=== PATIENT | female | born 1930 | race Caucasian/White ===

== ENCOUNTER 2020-10-30 17:15 | Inpatient (IN) | payer MEDICARE, OTHER ==
[2020-10-30 19:28] LABS: BASO % 0.5 % (0-2.0); EOS % 2.9 % (0-4.5); HEMATOCRIT 37.9 % (32.4-45.2); LYMPH % 17.9 % (8-40); MCH 30.7 pg (25.7-33.7); MCHC 34.2 g/dl (32.0-36.0); MEAN CELL VOLUME 89.8 fl (80-96); MEAN PLT VOLUME 8.5 fl (7.5-11.1); MONO % 11.3 % (3.8-10.2); NEUT % 67.4 % (42.8-82.8); PLATELET COUNT 266 K/MM3 (134-434); RBC 4.22 M/mm3 (3.60-5.2); RDW 13.8 % (11.6-15.6); WHITE BLOOD COUNT 6.4 K/mm3 (4.0-10.0)
[2020-10-30 19:35] LABS: INR 1.7 (0.83-1.09); PROTHROMBIN TIME (PATIENT) 20.2 SEC (9.7-13.0)
[2020-10-30 19:38] LABS: ACTIVATED PTT 28.5 SECONDS (25.2-36.5)
[2020-10-30] MEDS ORDERED: ACETAMINOPHEN 1000 MG/100 ML VIAL (NON FORMULARY) IVPB ONE (19:46)
[2020-10-30] MEDS ORDERED: LACTATED RINGERS SOLUTION 1000 ML INFUS.BAG IV ONE (19:47)
[2020-10-30 19:51] LABS: CHLORIDE 101 mmol/L (98-107); POTASSIUM 3.8 mmol/L (3.5-5.1); SODIUM 138 mmol/L (136-145)
[2020-10-30 19:53] LABS: ALBUMIN 3.1 g/dl (3.4-5.0); CALCIUM 8.9 mg/dL (8.5-10.1)
[2020-10-30 19:54] LABS: ANION GAP 6 MMOL/L (8-16); CO2 31 mmol/L (21-32); GLUCOSE,RANDOM 100 mg/dL (74-106)
[2020-10-30 19:56] LABS: SGPT/ALT 16 U/L (13-61)
[2020-10-30 19:57] LABS: CREATININE 0.8 mg/dL (0.55-1.3); SGOT/AST 22 U/L (15-37)
[2020-10-30 19:58] LABS: BILIRUBIN,TOTAL 0.6 mg/dL (0.2-1); TOT PROT 6.9 g/dl (6.4-8.2)
[2020-10-30 19:59] LABS: ALK PHOS 66 U/L (45-117)
[2020-10-30 23:09] LABS: PH,URINE 5.5 (5.0-8.0); URINE APPEARANCE CLEAR; URINE BILIRUBIN NEGATIVE (NEGATIVE); URINE COLOR YELLOW; URINE GLUCOSE (UA) NEGATIVE (NEGATIVE); URINE KETONE NEGATIVE (NEGATIVE); URINE LEUK ESTERASE NEGATIVE (NEGATIVE); URINE NITRITE NEGATIVE (NEGATIVE); URINE PROTEIN NEGATIVE (NEGATIVE); URINE UROBILINOGEN 0.2 mg/dL (0.2-1.0)
[2020-10-31] MEDS ORDERED: QUEtiapine FUMARATE 100 MG TABLET (FP) PO PRN (03:18)
[2020-10-31 08:19] LABS: BASO % 0.5 % (0-2.0); EOS % 2.4 % (0-4.5); HEMATOCRIT 37.4 % (32.4-45.2); HEMOGLOBIN 12.9 GM/dL (10.7-15.3); MCH 30.5 pg (25.7-33.7); MCHC 34.6 g/dl (32.0-36.0); MEAN CELL VOLUME 88.2 fl (80-96); MEAN PLT VOLUME 8.6 fl (7.5-11.1); MONO % 8.4 % (3.8-10.2); NEUT % 76.7 % (42.8-82.8); PLATELET COUNT 283 K/MM3 (134-434); RBC 4.24 M/mm3 (3.60-5.2); RDW 13.9 % (11.6-15.6); WHITE BLOOD COUNT 8.6 K/mm3 (4.0-10.0)
[2020-10-31 08:24] LABS: POTASSIUM 3.6 mmol/L (3.5-5.1)
[2020-10-31 08:53] LABS: CALCIUM 9.2 mg/dL (8.5-10.1)
[2020-10-31 08:54] LABS: ALBUMIN 3.1 g/dl (3.4-5.0); BLOOD UREA NITROGEN 13.5 mg/dL (7-18); MAGNESIUM 2.1 mg/dL (1.8-2.4)
[2020-10-31 08:56] LABS: PHOSPHOROUS 3.9 mg/dL (2.5-4.9)
[2020-10-31 08:57] LABS: BILIRUBIN,TOTAL 0.6 mg/dL (0.2-1); CREATININE 0.8 mg/dL (0.55-1.3); TOT PROT 6.6 g/dl (6.4-8.2)
[2020-10-31] MEDS ORDERED: ASPIRIN COATED 81 MG TABLET.EC ONE (10:00)
[2020-10-31] MEDS ORDERED: APIXABAN 5 MG TABLET PO SCH (10:00)
[2020-10-31] MEDS ORDERED: ATENOLOL 25 MG TABLET (FP) ONE (10:00)
[2020-10-31] MEDS ORDERED: FUROSEMIDE 40 MG TABLET (FP) ONE (10:00)
[2020-10-31] MEDS ORDERED: DULoxetine HCL 30 MG CAPSULE.DR PO ONE (10:01)
[2020-10-31] MEDS ORDERED: LOSARTAN POTASSIUM 50 MG TABLET ONE (10:01)
[2020-10-31] MEDS ORDERED: POTASSIUM CHLORIDE TABS 20 MEQ TABLET.ER (FP) PO ONE (10:01)
[2020-10-31] MEDS ORDERED: GABAPENTIN 100 MG CAPSULE ONE (10:01)
[2020-10-31] MEDS: POTASSIUM CHLORIDE TABS 10 MEQ TABLET.ER (FP) PO SCH (10:10)
[2020-10-31] MEDS: DULoxetine HCL 30 MG CAPSULE.DR PO SCH (10:10)
[2020-10-31] MEDS: ASPIRIN COATED 81 MG TABLET.EC PO SCH (10:10)
[2020-10-31] MEDS: LOSARTAN POTASSIUM 50 MG TABLET PO SCH (10:10)
[2020-10-31] MEDS: GABAPENTIN 100 MG CAPSULE PO SCH ×3 (10:10→23:17)
[2020-10-31] MEDS: ATENOLOL 25 MG TABLET (FP) PO SCH (10:15)
[2020-10-31] MEDS: FUROSEMIDE 40 MG TABLET (FP) PO SCH (10:15)
[2020-10-31] MEDS ORDERED: QUEtiapine FUMARATE 25 MG TABLET PO PRN (10:17)
[2020-10-31] MEDS: CALCITONIN - SALMON SYNTHETIC 200 UNITS/SPRAY NS SCH (12:07)
[2020-10-31] MEDS: SENNOSIDES 8.6MG TABLET (FP) PO SCH ×2 (23:09→23:15)
[2020-10-31] MEDS: APIXABAN 5 MG TABLET PO SCH ×2 (23:09→23:17)
[2020-11-01] MEDS: APIXABAN 5 MG TABLET PO SCH ×2 (09:10→22:47)
[2020-11-01] MEDS: LOSARTAN POTASSIUM 50 MG TABLET PO SCH (09:10)
[2020-11-01] MEDS: ATENOLOL 25 MG TABLET (FP) PO SCH (09:10)
[2020-11-01] MEDS: GABAPENTIN 100 MG CAPSULE PO SCH ×2 (09:11→22:47)
[2020-11-01] MEDS: ASPIRIN COATED 81 MG TABLET.EC PO SCH (09:11)
[2020-11-01] MEDS: FUROSEMIDE 40 MG TABLET (FP) PO SCH (09:11)
[2020-11-01] MEDS: POTASSIUM CHLORIDE TABS 10 MEQ TABLET.ER (FP) PO SCH (09:12)
[2020-11-01] MEDS: DULoxetine HCL 30 MG CAPSULE.DR PO SCH (09:12)
[2020-11-01] MEDS: CALCITONIN - SALMON SYNTHETIC 200 UNITS/SPRAY NS SCH (11:16)
[2020-11-01 12:45] LABS: BASO % 0.5 % (0-2.0); EOS % 1.9 % (0-4.5); HEMATOCRIT 37.7 % (32.4-45.2); HEMOGLOBIN 12.8 GM/dL (10.7-15.3); LYMPH % 14.4 % (8-40); MCH 30.3 pg (25.7-33.7); MEAN PLT VOLUME 8.5 fl (7.5-11.1); MONO % 8.7 % (3.8-10.2); NEUT % 74.5 % (42.8-82.8); PLATELET COUNT 274 K/MM3 (134-434); RBC 4.23 M/mm3 (3.60-5.2); RDW 13.4 % (11.6-15.6); WHITE BLOOD COUNT 6.5 K/mm3 (4.0-10.0)
[2020-11-01 13:00] LABS: POTASSIUM 3.7 mmol/L (3.5-5.1)
[2020-11-01 13:02] LABS: ALBUMIN 2.9 g/dl (3.4-5.0)
[2020-11-01 13:03] LABS: CALCIUM 9.2 mg/dL (8.5-10.1)
[2020-11-01 13:04] LABS: BLOOD UREA NITROGEN 12.9 mg/dL (7-18)
[2020-11-01 13:08] LABS: BILIRUBIN,TOTAL 0.5 mg/dL (0.2-1); CREATININE 0.7 mg/dL (0.55-1.3); TOT PROT 6.6 g/dl (6.4-8.2)
[2020-11-01] MEDS: SENNOSIDES 8.6MG TABLET (FP) PO SCH (22:47)
[2020-11-02] MEDS: ACETAMINOPHEN 325 MG TABLET (FP) PO PRN (03:22)
[2020-11-02] MEDS: FUROSEMIDE 40 MG TABLET (FP) PO SCH (09:11)
[2020-11-02] MEDS: TAMSULOSIN HCL 0.4 MG CAP PO SCH (09:11)
[2020-11-02] MEDS: POTASSIUM CHLORIDE TABS 10 MEQ TABLET.ER (FP) PO SCH (09:12)
[2020-11-02] MEDS: ATENOLOL 25 MG TABLET (FP) PO SCH (09:12)
[2020-11-02] MEDS: LOSARTAN POTASSIUM 50 MG TABLET PO SCH (09:12)
[2020-11-02] MEDS: APIXABAN 5 MG TABLET PO SCH (09:12)
[2020-11-02] MEDS: ASPIRIN COATED 81 MG TABLET.EC PO SCH (09:13)
[2020-11-02] MEDS: DULoxetine HCL 30 MG CAPSULE.DR PO SCH (09:13)
[2020-11-02] MEDS: GABAPENTIN 100 MG CAPSULE PO SCH (09:13)
[2020-11-02] MEDS: CALCITONIN - SALMON SYNTHETIC 200 UNITS/SPRAY NS SCH (09:13)
[2020-11-02 19:32] VITALS: BMI 29.7
[2020-11-03] MEDS: SENNOSIDES 8.6MG TABLET (FP) PO SCH (01:39)
[2020-11-03] MEDS: GABAPENTIN 100 MG CAPSULE PO SCH ×2 (01:40→10:09)
[2020-11-03] MEDS: APIXABAN 5 MG TABLET PO SCH ×2 (01:40→10:07)
[2020-11-03] MEDS ORDERED: PT OWN MED DRAWER 7, Y5N ONE ×2 (09:40→13:21)
[2020-11-03] MEDS: ATENOLOL 25 MG TABLET (FP) PO SCH (10:08)
[2020-11-03] MEDS: ASPIRIN COATED 81 MG TABLET.EC PO SCH (10:08)
[2020-11-03] MEDS: ACETAMINOPHEN 325 MG TABLET (FP) PO PRN (10:08)
[2020-11-03] MEDS: TAMSULOSIN HCL 0.4 MG CAP PO SCH (10:08)
[2020-11-03] MEDS: DULoxetine HCL 30 MG CAPSULE.DR PO SCH (10:08)
[2020-11-03] MEDS: LOSARTAN POTASSIUM 50 MG TABLET PO SCH (10:08)
[2020-11-03] MEDS: FUROSEMIDE 40 MG TABLET (FP) PO SCH (10:08)
[2020-11-03] MEDS: POTASSIUM CHLORIDE TABS 10 MEQ TABLET.ER (FP) PO SCH (10:08)
[2020-11-03] MEDS: CALCITONIN - SALMON SYNTHETIC 200 UNITS/SPRAY NS SCH (10:09)
[2020-11-03 15:27] VITALS: BP 112/59; PULSE 72; TEMP 97.9
== END 2020-11-03 17:10 | DRG 885 ==
LOC: JER 17:15 → JERBED 22:55 → J8W 10-31 17:26
PROVIDERS: ADMIT Hospitalist; ATTEND Family Medicine
DX: F32.3 Major depressive disorder, single episode, severe with psychotic features (principal); N13.30 Unspecified hydronephrosis; R33.9 Retention of urine, unspecified; I48.91 Unspecified atrial fibrillation; E78.5 Hyperlipidemia, unspecified; I10 Essential (primary) hypertension; H35.30 Unspecified macular degeneration; M10.9 Gout, unspecified; K82.8 Other specified diseases of gallbladder; R41.82 Altered mental status, unspecified; M48.56XG Collapsed vertebra, not elsewhere classified, lumbar region, subsequent encounter for fracture with delayed healing; G30.9 Alzheimer's disease, unspecified; F02.80 Dementia in other diseases classified elsewhere, unspecified severity, without behavioral disturbance, psychotic disturbance, mood disturbance, and anxiety
CPT/HCPCS: 36415; 70450-TC; 71045-TC-FY; 74177-TC; 76700-TC; 76775-TC; 80053; 81003; 82140; 82550; 82607; 83605; 83735; 84100; 84443; 84484; 85025; 85610; 85730; 86780; 87040; 87086; 93005; 93010; 97116-GP; 97161-GP; 99285-25; C9803; J0131; U0003; U0005